=== PATIENT | female | born 1975 | race Caucasian/White ===

== ENCOUNTER 2019-07-12 02:43 | Emergency (ER) | payer MEDICAID ==
[~2019-07-12] VITALS: Ht 170.2 cm; Wt 72.0 kg
[2019-07-12 02:48] VITALS: BP 112/67
== END 2019-07-12 03:50 | disposition home or self-care (01) ==
LOC: EDBD 02:43 → ED 03:30
DX: F10.120 Alcohol abuse with intoxication, uncomplicated (principal)
CPT/HCPCS: 93005; 99283